=== PATIENT | male | born 1975 ===

== ENCOUNTER 2020-10-27 09:07 | Outpatient (CLI) | payer OTHER ==
--- NOTE | 2020-10-27 12:37 | Vascular Lab Report ---
LEFT UPPER EXTREMITY VENOUS DOPPLER ULTRASOUND HISTORY: Left upper extremity pain COMPARISON: None. TECHNIQUE: Grayscale, color and spectral Doppler imaging of the venous system of the left upper extre mity was performed. FINDINGS: Internal Jugular Vein: Normal grayscale appearance and flow. Subclavian Vein: Normal grayscale appearance and flow. Axillary Vein: Normal venous flow, compressibility and augmentation. Brachial vein: Normal venous flow, compressibility and augmentation. Radial vein: Normal venous flow, compressibility and augmentation. Ulnar vein: Normal venous flow, compressibility and augmentation. Additional Findings: None. IMPRESSION: 1. No sonographic evidence of deep venous thrombosis in the left upper extremity. Signer Name: Drake Chun Jr, MD Signed: 10/27/2020 12:32 PM Workstation Name: [id number]
== END 2020-10-27 09:08 | disposition home or self-care (01) ==
LOC: VAS 09:07
PROVIDERS: ATTEND Nurse Practitioner Family
DX: M79.622 Pain in left upper arm (principal)